=== PATIENT | female | born 1935 | race Caucasian/White ===

== ENCOUNTER 2020-07-09 17:26 | Emergency (ER) | payer MEDICARE, BC ==
[~2020-07-09] VITALS: Ht 157.5 cm; Wt 63.6 kg
--- NOTE | 2020-07-09 18:04 | PHYS DOC ---
Past History Past Medical History: CHF, Hypertension, Hypothyroid, Other Additional Past Medical Histor: gout, polio Past Surgical History: Hysterectomy Alcohol Use: None General Adult EDM: Chief Complaint: MECHANICAL FALL HPI: HPI: ".. I was bending over to bean picker some cat food...it had spilled.... and hector messed stepped.. when I came back up ... and I fell backwards.. I got a big well knot on back my head.. they did not did not know what that was... [place] well I got lots of cats.. now... Ruffless, Barry, Nemis, Sabrina and Boaty... I ended up with my daughter when she got transfer to [place]..."..." I do not want a lot of fuss with this work-up..just get some X- ray.s... I got to get back home..." .." Look I am not going to be admitted".. 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 Patient has a 4 x 4 centimeter hematoma. And some upper neck tenderness. Patient denies any loss of consciousness. Patient states she is not on any "blood thinners" or anticoagulants. Patient denies other injuries at this time. Patient does have frequent falls and has numerous contusions and different stages of healing on the bony points, lower legs , elbows and knees patient lives by herself with currently 5 cats. Patient has a past medical history of hypertension, hypothyroid, gout and arthritis. Patient follows with local doctors Rico and Armida. Patient denies any recent travel outside the [place] area. Patient denies any fever chills. Patient denies any contact with sick individuals. Patient currently refuses any pain meds states she does not even want Tylenol at this time. Patient does wear a life alert-daughter lives in [place], granddaughter recently transferred for work in [place]. Review of Systems: Review of Systems: Constitutional: Denies fever or chills Eyes: Denies change in visual acuity HENT: Denies nasal congestion or sore throat . Complains of head injury. Complains of neck pain. Respiratory: Denies cough or shortness of breath Cardiovascular: Denies chest pain or edema GI: Denies abdominal pain, nausea, vomiting, bloody stools or diarrhea : Denies dysuria Musculoskeletal: Denies back pain or joint pain Integument: Denies rash Neurologic: Denies headache, focal weakness or sensory changes . Reports frequent falls Endocrine: Denies polyuria or polydipsia Lymphatic: Denies swollen glands Psychiatric: Denies depression or anxiety Family History: Family History: Noncontributory to presentation Current Medications: Current Meds: See nursing for home meds Allergies: Allergies: Allergies Coded Allergies Type Severity Reaction Last Updated Verified No Known Drug Allergies 07/09/20 No Physical Exam: PE: Constitutional: Moderate acute distress, non-toxic appearance. [] HENT: Normocephalic, hematoma posterior scalp, bilateral external ears normal, oropharynx moist, no oral exudates, nose normal. [] Eyes: PERRLA, EOMI, conjunctiva normal, no discharge. Appears of had bilateral lens implants after cataract surgery Neck: Normal range of motion, upper cervical midline tenderness, supple, no stridor. [] Cardiovascular:Heart rate regular rhythm, no murmur, PMI to the left Lungs & Thorax: Bilateral breath sounds equal at apex on auscultation [] Abdomen: Bowel sounds normal, soft, no tenderness, no masses, no pulsatile masses. Peers to be a small surgery scar Skin: Warm, dry, no erythema, no rash. Poor turgor. Multiple areas of contusions in various stages of healing from previous falls Back: No tenderness, no CVA tenderness. [] Extremities: No tenderness, no cyanosis, no clubbing, ROM intact, no edema. Arthritic changes. DTRs +2 patella and brachial. 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 No drift. Patient was able to ambulate to bathroom without assistance. Neurologic: Alert and oriented X 3, patient moves all extremities on request, has distal sensory, patient reports no new focal deficits . Psychologic: Affect anxious, judgement appears to have good insight, mood normal. Very interactive with questions. Current Patient Data: Vital Signs: Vital Signs Date Time Temp Pulse Resp B/P (MAP) Pulse Ox O2 Delivery O2 Flow Rate FiO2 07/09/20 17:43 97.9 70 18 127/78 (94) 96 EKG: EKG: [] Radiology/Procedures: Radiology/Procedures: [][address] [address] IMAGING REPORT Signed PATIENT: MALIK HAQUE ACCOUNT: [id number] : 1935 LOCATION: ER AGE: 85 SEX: F EXAM STATUS: REG ER ORD. PHYSICIAN: DULCE WILLSON MD REASON: Head injury from fall, left posterior head lump, head/neck pain PROCEDURE: CT HEAD AND CERVICAL SPINE WO Examination: CT head and cervical spine without contrast CT HEAD INDICATION: Reason: Head injury from fall, left posterior head lump, head/neck pain / Spl. Instructions: / History: COMPARISON: None Available. Exposure: One or more of the following individualized dose reduction techniques were utilized for this examination: 1. Automated exposure control 2. Adjustment of the mA and/or kV according to patient size 3. Use of iterative reconstruction technique TECHNIQUE: 5 mm contiguous axial images were obtained from the skull base to the vertex in both bone and soft tissue algorithm. FINDINGS: Mild bilateral periventricular white matter hypodensities likely chronic small vessel ischemic disease. Mild soft tissue swelling identified in the left occipital scalp region likely secondary to injury. No evidence of acute intracranial hemorrhage. No extra-axial fluid collections. No mass effect or midline shift. Ventricular size is appropriate. Basal cisterns are patent. No fractures identified.John-white differentiation is preserved.Globes and orbits are within normal limits. Paranasal sinuses and mastoid air cells are clear. IMPRESSION: 1. No acute intracranial findings 2. Small left occipital scalp hematoma. CT CERVICAL SPINE INDICATION: Reason: Head injury from fall, left posterior head lump, head/neck pain / Spl. Instructions: / History: COMPARISON: None Available. Technique: 2.5 mm contiguous axial images were obtained from the skull base through the cervicothoracic junction in both bone and soft tissue algorithm. Additional sagittal and coronal reconstructions were also performed. FINDINGS: Vertebral body height and alignment are maintained. Cervical lordosis is preserved. The lateral masses of C1 are aligned upon C2. No fractures identified. The bony canal is patent throughout. Moderate intervertebral disc height loss identified in cervical spine likely degenerative changes. The paraspinous soft tissues are unremarkable. Visualized intracranial contents are unremarkable. Lung apices are clear. IMPRESSION: 1. No acute fracture of the cervical spine. 2. Moderate degenerative changes cervical spine. Electronically signed by: Ant Bassett MD (07/09/2020 7:13 PM) [id number] Heart Score: Risk Factors: Risk Factors: DM, Current or recent (<one month) smoker, HTN, HLP, family history of CAD, obesity. Risk Scores: Score 0 - 3: 2.5% MACE over next 6 weeks - Discharge Home Score 4 - 6: 20.3% MACE over next 6 weeks - Admit for Clinical Observation Score 7 - 10: 72.7% MACE over next 6 weeks - Early Invasive Strategies Course & Med Decision Making: Course & Med Decision Making Pertinent Labs and Imaging studies reviewed. (See chart for details) Encourage patient to use a walker. Encourage patient to stay with someone like her to check her for mental status changes. Use ice packs as needed. Take Tylenol for pain. Return if she elects to have further work-up. Begged patient to consider further evaluation however patient insisted on being discharged home. Impression: 1. Trip and fall 2. Head injury [] Dragon Disclaimer: Dragon Disclaimer: This electronic medical record was generated, in whole or in part, using a voice recognition dictation system. Departure Departure: Referrals: MICKY WATKINS (PCP) Florinda Disclaimer This chart was dictated in whole or in part using Voice Recognition software in a busy, high-work load, and often noisy Emergency Department environment. It may contain unintended and wholly unrecognized errors or omissions. Dragon Disclaimer This chart was dictated in whole or in part using Voice Recognition software in a busy, high-work load, and often noisy Emergency Department environment. It may contain unintended and wholly unrecognized errors or omissions. DULCE WILLSON MD Jul 09, 2020 18:04
--- NOTE | 2020-07-09 19:16 | RAD ---
Examination: CT head and cervical spine without contrast CT HEAD INDICATION: Reason: Head injury from fall, left posterior head lump, head/neck pain / Spl. Instructions: / History: COMPARISON: None Available. Exposure: One or more of the following individualized dose reduction techniques were utilized for this examination: 1. Automated exposure control 2. Adjustment of the mA and/or kV according to patient size 3. Use of iterative reconstruction technique TECHNIQUE: 5 mm contiguous axial images were obtained from the skull base to the vertex in both bone and soft tissue algorithm. FINDINGS: Mild bilateral periventricular white matter hypodensities likely chronic small vessel ischemic disease. Mild soft tissue swelling identified in the left occipital scalp region likely secondary to injury. No evidence of acute intracranial hemorrhage. No extra-axial fluid collections. No mass effect or midline shift. Ventricular size is appropriate. Basal cisterns are patent. No fractures identified.John-white differentiation is preserved.Globes and orbits are within normal limits. Paranasal sinuses and mastoid air cells are clear. IMPRESSION: 1. No acute intracranial findings 2. Small left occipital scalp hematoma. CT CERVICAL SPINE INDICATION: Reason: Head injury from fall, left posterior head lump, head/neck pain / Spl. Instructions: / History: COMPARISON: None Available. Technique: 2.5 mm contiguous axial images were obtained from the skull base through the cervicothoracic junction in both bone and soft tissue algorithm. Additional sagittal and coronal reconstructions were also performed. FINDINGS: Vertebral body height and alignment are maintained. Cervical lordosis is preserved. The lateral masses of C1 are aligned upon C2. No fractures identified. The bony canal is patent throughout. Moderate intervertebral disc height loss identified in cervical spine likely degenerative changes. The paraspinous soft tissues are unremarkable. Visualized intracranial contents are unremarkable. Lung apices are clear. IMPRESSION: 1. No acute fracture of the cervical spine. 2. Moderate degenerative changes cervical spine. Electronically signed by: Ant Bassett MD (07/09/2020 7:13 PM) [id number]
[2020-07-09 20:45] VITALS: BP 130/80
== END 2020-07-09 20:45 | disposition home or self-care (01) ==
LOC: ER 17:26
DX: S00.03XA Contusion of scalp, initial encounter (principal); M54.2 Cervicalgia; R29.6 Repeated falls; I11.0 Hypertensive heart disease with heart failure; I50.9 Heart failure, unspecified; E03.9 Hypothyroidism, unspecified; W01.0XXA Fall on same level from slipping, tripping and stumbling without subsequent striking against object, initial encounter; Y93.89 Activity, other specified; Y92.89 Other specified places as the place of occurrence of the external cause; Y99.8 Other external cause status
CPT/HCPCS: 70450; 72125; 99285-25

== ENCOUNTER 2020-08-02 01:09 | Emergency (ER) | payer MEDICARE, BC ==
[~2020-08-02] VITALS: Ht 157.5 cm; Wt 53.7 kg
[2020-08-02 01:17] VITALS: BP 120/62
--- NOTE | 2020-08-02 01:34 | EKG ---
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
--- NOTE | 2020-08-02 01:34 | PHYS DOC ---
Past History Past Medical History: CHF, Hypertension, Hypothyroid, Other Additional Past Medical Histor: gout, polio Past Surgical History: Hysterectomy Alcohol Use: None General Adult EDM: Chief Complaint: MECHANICAL FALL HPI: HPI: Patient is a 85-year-old female coming in after a fall from standing at home. Was getting up walking and fell backwards and struck her head she is unsure if she struck her head on the nightstand with bookshelf. Denies any loss of consciousness. Use her life alert to call for EMS. Planing of pain and hematoma to the back of her head. On palpation of extremities she is tender in her left humerus and left hip. Denies any use of blood thinners. Review of Systems: Review of Systems: Constitutional: Denies fever or chills Eyes: Denies change in visual acuity HENT: Denies nasal congestion or sore throat Respiratory: Denies cough or shortness of breath Cardiovascular: Denies chest pain or edema GI: Denies abdominal pain, nausea, vomiting, bloody stools or diarrhea : Denies dysuria Musculoskeletal: Denies back pain or joint pain Integument: Denies rash Neurologic: Denies headache, focal weakness or sensory changes Endocrine: Denies polyuria or polydipsia Lymphatic: Denies swollen glands Psychiatric: Denies depression or anxiety Allergies: Allergies: Allergies Coded Allergies Type Severity Reaction Last Updated Verified No Known Drug Allergies 07/09/20 No Physical Exam: PE: Constitutional: Well developed, well nourished, no acute distress, non-toxic appearance. [] HENT: Normocephalic, occipital hematoma bilateral external ears normal, oropharynx moist, no oral exudates, nose normal. [] Eyes: PERRLA, EOMI, conjunctiva normal, no discharge. [] Neck: tenderness over C5-7 Cardiovascular:Heart rate regular rhythm, no murmur [] Lungs & Thorax: Bilateral breath sounds clear to auscultation [] Abdomen: Bowel sounds normal, soft, no tenderness, no masses, no pulsatile masses. [] Skin: Warm, dry, no erythema, no rash. [] No tenderness Back: No tenderness, no CVA tenderness. [] Extremities: Tenderness to left upper arm, left hip. No tenderness over T/L spine, no step-offs or deformities, no tenderness over chest or rib cage. No cyanosis, no clubbing, ROM intact, no edema. [] Neurologic: Alert and oriented X 3, normal motor function, normal sensory function, no focal deficits noted. [] Psychologic: Affect normal, judgement normal, mood normal. [] EKG: EKG: Ventricular paced rhythm, heart rate 67 left axis deviation no ectopy Radiology/Procedures: Radiology/Procedures: PROCEDURE: CT HEAD AND CERVICAL SPINE WO EXAMINATION: CT HEAD AND CERVICAL SPINE WO CLINICAL HISTORY: Fall TECHNIQUE: Serial axial images without IV contrast were obtained from the vertex to the foramen magnum. CT of the cervical spine without IV contrast. Spiral, high resolution axial images were obtained from the skull base to the cervicothoracic junction with sagittal and coronal planar reconstructions. CT Dose Reduction Employed: One or more of the following individualized dose reduction techniques were utilized for this examination: 1. Automated exposure control 2. Adjustment of the mA and/or kV according to patient size 3. Use of iterative reconstruction technique. COMPARISON: 07/09/2020 FINDINGS: BRAIN: Post-operative change: None. Acute change: Mild subcutaneous edema and small hematoma along the left occipital scalp, mildly increased from prior study. No evidence of an acute contusion or other acute parenchymal process. Hemorrhage: No evidence of acute intracranial hemorrhage. Mass Lesion / Mass Effect: There is no evidence of an intracranial mass or extraaxial fluid collection. No significant mass effect. Chronic change: Scattered patchy foci of low attenuation are present within supratentorial white matter which is a nonspecific finding but likely represents mild microvascular ischemia. Parenchyma: There is mild generalized volume loss. The brain parenchyma is otherwise within normal limits for age. Ventricles: The ventricles are within normal limits of size and configuration for age. Paranasal sinuses and skull base: The visualized paranasal sinuses are grossly clear. Atherosclerotic ossification of bilateral carotid siphons. Diffuse calvarial osteopenia. The skull base and imaged soft tissues are otherwise unremarkable. C-SPINE: Alignment: Grade 1 anterolisthesis C6-7. Craniocervical junction: Craniocervical junction is normal. Osseous structures/fracture: Mildly displaced acute oblique fracture through the C5 spinous process. Cervical soft tissues: No prevertebral soft tissue swelling. Carotid atherosclerotic calcification. Mild scarring in the bilateral lung apices. Degenerative changes: Atlantodental degenerative changes. Moderate multilevel degenerative disc disease. Marked multilevel facet arthropathy and multilevel fusion of the facet joints bilaterally. Mild to moderate multilevel neural foraminal narrowing. No evidence of significant osseous spinal stenosis. IMPRESSION: No evidence of acute intracranial abnormality. Mildly enlarged small hematoma and mild subcutaneous edema along the left occipital scalp. Mildly displaced acute fracture through the C5 spinous process. Multilevel degenerative findings throughout the cervical spine, unchanged.[] EXAMINATION: HUMERUS LEFT, HIP LEFT 2V WITH PELVIS CLINICAL HISTORY: Fall TECHNIQUE: HUMERUS LEFT, HIP LEFT 2V WITH PELVIS Number of Images/Views: 2 humerus, 3 hip COMPARISON: None FINDINGS: HUMERUS: No acute fracture. Mild acromioclavicular degenerative changes. Limited evaluation of the elbow unremarkable. No focal soft tissue swelling. HIP: Joint space alignment maintained in the left hip. Mild degenerative changes suggested in the right hip, incompletely evaluated. Pubic symphysis and SI joints maintained. Partially visualized lumbar degenerative changes. No acute fracture. Vascular calcifications. IMPRESSION: No acute osseous abnormality involving the left humerus or left hip. Degenerative changes as described. Heart Score: Risk Factors: Risk Factors: DM, Current or recent (<one month) smoker, HTN, HLP, family history of CAD, obesity. Risk Scores: Score 0 - 3: 2.5% MACE over next 6 weeks - Discharge Home Score 4 - 6: 20.3% MACE over next 6 weeks - Admit for Clinical Observation Score 7 - 10: 72.7% MACE over next 6 weeks - Early Invasive Strategies Course & Med Decision Making: Course & Med Decision Making Isolated fracture of C5 spinous process, no neuro deficits soft collar placed for comfort. [] Dragon Disclaimer: Dragon Disclaimer: This electronic medical record was generated, in whole or in part, using a voice recognition dictation system. Departure Departure: Impression: Primary Impression: Fall Additional Impressions: Traumatic hematoma of scalp Closed C5 fracture Disposition: 01 DC HOME SELF CARE/HOMELESS Condition: STABLE Referrals: MICKY WATKINS (PCP) Patient Instructions: Fall Prevention and Home Safety Additional Instructions: Follow-up with your primary care, keep collar on to avoid moving neck. Scripts Hydrocodone Bit/Acetaminophen (NORCO 5-325 TABLET) 1 Each Tablet 1 TAB PO BID for pain for 5 Days, #10 TAB Prov: GISELLE EWING MD 08/02/20 GISELLE EWING MD Aug 02, 2020 01:34
--- NOTE | 2020-08-02 01:52 | RAD ---
EXAMINATION: CT HEAD AND CERVICAL SPINE WO CLINICAL HISTORY: Fall TECHNIQUE: Serial axial images without IV contrast were obtained from the vertex to the foramen magnum. CT of the cervical spine without IV contrast. Spiral, high resolution axial images were obtained from the skull base to the cervicothoracic junction with sagittal and coronal planar reconstructions. CT Dose Reduction Employed: One or more of the following individualized dose reduction techniques were utilized for this examination: 1. Automated exposure control 2. Adjustment of the mA and/or kV according to patient size 3. Use of iterative reconstruction technique. COMPARISON: 07/09/2020 FINDINGS: BRAIN: Post-operative change: None. Acute change: Mild subcutaneous edema and small hematoma along the left occipital scalp, mildly increased from prior study. No evidence of an acute contusion or other acute parenchymal process. Hemorrhage: No evidence of acute intracranial hemorrhage. Mass Lesion / Mass Effect: There is no evidence of an intracranial mass or extraaxial fluid collection. No significant mass effect. Chronic change: Scattered patchy foci of low attenuation are present within supratentorial white matter which is a nonspecific finding but likely represents mild microvascular ischemia. Parenchyma: There is mild generalized volume loss. The brain parenchyma is otherwise within normal limits for age. Ventricles: The ventricles are within normal limits of size and configuration for age. Paranasal sinuses and skull base: The visualized paranasal sinuses are grossly clear. Atherosclerotic ossification of bilateral carotid siphons. Diffuse calvarial osteopenia. The skull base and imaged soft tissues are otherwise unremarkable. C-SPINE: Alignment: Grade 1 anterolisthesis C6-7. Craniocervical junction: Craniocervical junction is normal. Osseous structures/fracture: Mildly displaced acute oblique fracture through the C5 spinous process. Cervical soft tissues: No prevertebral soft tissue swelling. Carotid atherosclerotic calcification. Mild scarring in the bilateral lung apices. Degenerative changes: Atlantodental degenerative changes. Moderate multilevel degenerative disc disease. Marked multilevel facet arthropathy and multilevel fusion of the facet joints bilaterally. Mild to moderate multilevel neural foraminal narrowing. No evidence of significant osseous spinal stenosis. IMPRESSION: No evidence of acute intracranial abnormality. Mildly enlarged small hematoma and mild subcutaneous edema along the left occipital scalp. Mildly displaced acute fracture through the C5 spinous process. Multilevel degenerative findings throughout the cervical spine, unchanged. Electronically signed by: Jake Floyd DO (08/02/2020 1:48 AM) [facility]
--- NOTE | 2020-08-02 02:54 | RAD ---
EXAMINATION: HUMERUS LEFT, HIP LEFT 2V WITH PELVIS CLINICAL HISTORY: Fall TECHNIQUE: HUMERUS LEFT, HIP LEFT 2V WITH PELVIS Number of Images/Views: 2 humerus, 3 hip COMPARISON: None FINDINGS: HUMERUS: No acute fracture. Mild acromioclavicular degenerative changes. Limited evaluation of the elbow unremarkable. No focal soft tissue swelling. HIP: Joint space alignment maintained in the left hip. Mild degenerative changes suggested in the right hip, incompletely evaluated. Pubic symphysis and SI joints maintained. Partially visualized lumbar degenerative changes. No acute fracture. Vascular calcifications. IMPRESSION: No acute osseous abnormality involving the left humerus or left hip. Degenerative changes as described. Electronically signed by: Jake Floyd DO (08/02/2020 2:50 AM) D[facility]EL
[2020-08-02] MEDS ORDERED: HYDR-3165 PO (03:24)
== END 2020-08-02 04:00 | disposition home or self-care (01) ==
LOC: ER 01:09
DX: S12.400A Unspecified displaced fracture of fifth cervical vertebra, initial encounter for closed fracture (principal); S00.03XA Contusion of scalp, initial encounter; M79.622 Pain in left upper arm; M25.522 Pain in left elbow; I11.0 Hypertensive heart disease with heart failure; I50.9 Heart failure, unspecified; E03.9 Hypothyroidism, unspecified; W18.39XA Other fall on same level, initial encounter; Y93.89 Activity, other specified; Y92.89 Other specified places as the place of occurrence of the external cause; Y99.8 Other external cause status
CPT/HCPCS: 70450; 72125; 73060; 73502; 93005; 99285

== ENCOUNTER → 2021-02-20 | Outpatient (CLI) | payer MEDICARE, BC ==
[~2021-02-20] MED LIST: HYDR-3165 PO
--- NOTE | 2021-02-20 17:07 | RAD ---
Chest, PA and Lateral: Technique: PA and lateral views of the chest were obtained. History: Long-term amiodarone use. Comparison: None. Findings: The heart and pulmonary vasculature appear within normal limits. The lungs are clear. The pleural ma rgins are clear. Left-sided cardiac pacer is identified. Hyperinflated lungs likely changes of COPD. Impression: No acute chest process is seen. Electronically signed by: Ant Bassett MD (02/20/2021 5:05 PM) [id number]
== END ==
LOC: RAD 16:20
PROVIDERS: ATTEND Internal Medicine Cardiovascular Disease
DX: I48.91 Unspecified atrial fibrillation (principal); Z79.02 Long term (current) use of antithrombotics/antiplatelets
CPT/HCPCS: 71046